=== PATIENT | male | born 1970 | race Two or more races ===

== ENCOUNTER 2019-02-07 17:57 | Emergency (ER) | payer BC, OTHER ==
[2019-02-07] MEDS ORDERED: LET GEL TOPICAL 1 EA SYR TP ONE (18:15)
[2019-02-07] MEDS ORDERED: OXYMETAZOLINE 30 ML NASAL SPRAY EACHNARE ONE (18:15)
[2019-02-07] MEDS ORDERED: TRANEXAMIC ACID 1,000 MG/10 ML VIAL TP ONE (18:15)
[2019-02-07] MEDS ORDERED: SILVER NITRATE APPLICATOR 1 APPL TP ONE (18:15)
--- NOTE | 2019-02-07 18:16 | EDPHY ---
H & P Stated Complaint: R sided epistaxis onset 1430. no thinners Time Seen by Provider: 02/07/19 18:13 HPI/ROS: CHIEF COMPLAINT: Epistaxis HISTORY OF PRESENT ILLNESS: The patient is a 48-year-old man who comes to the emergency department complaining of bloody nose from his right nares for about the last 2-3 hours. He states that it is dripping slowly. No trauma. No fever. He is not on any blood thinners. He did have a bloody nose on the left side about a year ago that resolved with cautery. Severity: Moderate Modifying factors: None REVIEW OF SYSTEMS: Constitutional: denies: chills, fever, recent illness, recent injury EENTM: See HPI Respiratory: denies: cough, shortness of breath Cardiac: denies: chest pain, irregular heart rate, lightheadedness, palpitations Gastrointestinal/Abdominal: denies: abdominal pain, diarrhea, nausea, vomiting, blood streaked stools Genitourinary: denies: dysuria, frequency, hematuria, pain Musculoskeletal: denies: joint pain, muscle pain Skin: denies: lesions, rash, jaundice, bruising Neurological: denies: headache, numbness, paresthesia, tingling, dizziness, weakness Hematologic/Lymphatic: denies: blood clots, easy bleeding, easy bruising Immunologic/allergic: denies: HIV/AIDS, transplant 10 systems reviewed and negative except as noted EXAM: GENERAL: Well-appearing, well-nourished and in no acute distress. HEAD: Atraumatic, normocephalic. EYES: Pupils equal round and reactive to light, extraocular movements intact, sclera anicteric, conjunctiva are normal. ENT: Right anterior septal bleeding, oropharynx clear without exudates. Moist mucous membranes. NECK: Normal range of motion, supple without lymphadenopathy or JVD. LUNGS: Breath sounds clear to auscultation bilaterally and equal. No wheezes rales or rhonchi. HEART: Regular rate and rhythm without murmurs, rubs or gallops. ABDOMEN: Soft, nontender, normoactive bowel sounds. No guarding, no rebound. No masses appreciated. BACK: No CVA tenderness, no spinal tenderness, step-offs or deformities EXTREMITIES: Normal range of motion, no pitting or edema. No clubbing or cyanosis. NEUROLOGICAL: Cranial nerves II through XII grossly intact. Normal speech, normal gait. 5/5 strength, normal movement in all extremities, normal sensation , normal reflexes PSYCH: Normal mood, normal affect. SKIN: Warm, dry, normal turgor, no visible rashes or lesions. Source: Patient Exam Limitations: No limitations - Personal History Current Tetanus Diphtheria and Acellular Pertussis (TDAP): Yes - Medical/Surgical History Hx Asthma: No Hx Chronic Respiratory Disease: No Hx Diabetes: No Hx Cardiac Disease: Yes Hx Renal Disease: No Hx Cirrhosis: No Hx Alcoholism: No Hx HIV/AIDS: No Hx Splenectomy or Spleen Trauma: No Other PMH: HTN, High cholesterol - Family History Significant Family History: No pertinent family hx - Social History Smoking Status: Never smoked Alcohol Use: None Constitutional: Initial Vital Signs Temperature (C) 36.6 C 02/07/19 18:02 Heart Rate 83 02/07/19 18:02 Respiratory Rate 16 02/07/19 18:02 Blood Pressure 154/114 H 02/07/19 18:02 O2 Sat (%) 98 02/07/19 18:02 O2 Delivery Mode Room Air Allergies/Adverse Reactions: No Known Allergies Allergy (Unverified 02/07/19 18:01) Home Medications: Medication Instructions Recorded Losartan Potassium 02/07/19 Synthroid 02/07/19 Terazosin HCl 02/07/19 Medical Decision Making Procedures: Patient's nose was cleared by blowing. Then was instilled with Afrin 2 sprays in each nostril. Was then packed with to call in ball soaked in LET. This was tolerated well in the bleeding has stopped. As then who will to cauterize the bleeding from the right anterior septum. Bleeding is currently controlled. ED Course/Re-evaluation: Patient tolerated the procedures well. Currently not bleeding. Will observe. 7:30 p.m. the patient's bleeding is not resumed. He is able to road test. Successfully cauterized. Will discharge to follow up with ENT. Differential Diagnosis: Partial list of the Differential diagnosis considered include but were not limited to; epistaxis anterior, posterior and although unlikely based on the history and physical exam, I also considered trauma, infection, coagulopathy. - Data Points Medications Given: Discontinued Medications Oxymetazoline HCl (Afrin Nasal [place]) 2 sprays EACHNARE EDNOW ONE Stop: 02/07/19 18:16 Last Admin: 05/15/19 18:24 Dose: Not Given Silver Nitrate/Potassium Nitrate (Silver Nitrate Applicator) 1 each TP EDNOW ONE Stop: 02/07/19 18:16 Last Admin: 02/07/19 18:25 Dose: Not Given Tetracaine/Epinephrine/Lidocaine (Let Gel Topical) 1 ea TP EDNOW ONE Stop: 02/07/19 18:16 Last Admin: 02/07/19 18:24 Dose: Not Given Tranexamic Acid (Cyklokapron) 500 mg TP EDNOW ONE Stop: 02/07/19 18:16 Last Admin: 02/07/19 18:25 Dose: Not Given Departure - Departure Disposition: Home, Routine, Self-Care Clinical Impression: Acute anterior epistaxis Condition: Fair Instructions: Nosebleed (ED) Referrals: Alvarez Saab MD [Primary Care Provider] - As per Instructions Amada Tapia MD [Medical Doctor] - 2-3 days without fail
[2019-02-07 19:48] VITALS: BP 145/112
== END 2019-02-07 19:47 | disposition home or self-care (01) ==
PROC: 3E09XTZ Introduction of Destructive Agent into Nose, External Approach (ICD-10-PCS; principal; 2019-02-07)
DX: R04.0 Epistaxis (principal)